=== PATIENT | male | born 1960 | race Two or more races ===

== ENCOUNTER 2017-12-11 14:32 | Observation (INO) | payer OTHER ==
[~2017-12-11] VITALS: Ht 177.8 cm; Wt 79.4 kg
[2017-12-11] MEDS ORDERED: ASPIRIN 325 MG TAB PO ONE (15:30)
[2017-12-11] MEDS ORDERED: ONDANSETRON HCL INJ 2 MG/ML VIAL IV PRN (16:45)
[2017-12-11] MEDS ORDERED: NITROGLYCERIN 2% OINT 1 GM PKT TOP ONE (17:00)
[2017-12-11] MEDS ORDERED: ENOXAPARIN INJ 80 MG/0.8 ML SYR SC ONE ×2 (17:30→18:00)
[2017-12-11 17:40] VITALS: BP 157/77
[2017-12-11] MEDS: NITROGLYCERIN 2% OINT 1 GM PKT TOP SCH (18:00)
[2017-12-11 19:10] VITALS: BP 119/73
[2017-12-11 19:33] VITALS: BP 157/77
[2017-12-11 20:00] VITALS: BP 119/73
[2017-12-11 23:29] LABS: CREATINE KINASE 77 IU/L (30-200)
[2017-12-12] VITALS (8 sets, daily range): BP systolic 103–128; BP diastolic 63–72
[2017-12-12] MEDS: NITROGLYCERIN 2% OINT 1 GM PKT TOP SCH ×4 (05:12→16:52)
[2017-12-12 05:55] LABS: BASOPHILS % 0.6 % (0.0-1.0); EOSINOPHILS # (AUTO) 0.3 (0.0-0.4); EOSINOPHILS % 5.1 % (0.0-6.0); HEMATOCRIT 42.4 % (38.2-49.6); HEMOGLOBIN 14.1 g/dL (14.0-18.0); LYMPHOCYTES # (AUTO) 2.2 (1.0-3.2); LYMPHOCYTES % 33.3 % (18.0-39.1); MEAN CORPUSCULAR HEMOGLOBIN 29.6 pg (28-32); MEAN CORPUSCULAR HGB CONC 33.3 g/dL (31-35); MEAN CORPUSCULAR VOLUME 89.1 fL (81-99); MONOCYTES # (AUTO) 0.6 (0.2-0.8); MONOCYTES % 8.8 % (4.4-11.3); NEUTROPHILS # (AUTO) 3.4 (2.1-6.9); NEUTROPHILS % 51.9 % (38.7-80.0); PLATELET COUNT 197 x10e3/uL (140-360); RED BLOOD COUNT 4.76 x10e6/uL (4.3-5.7); RED CELL DISTRIBUTION WIDTH 13.6 % (11.7-14.4)
[2017-12-12 06:20] LABS: ALANINE AMINOTRANSFERASE 14 IU/L (0-55); ALBUMIN 3.6 g/dL (3.5-5.0); ALBUMIN/GLOBULIN RATIO 1.3 (0.8-2.0); ALKALINE PHOSPHATASE 32 IU/L (40-150); ANION GAP 10.9 mmol/L (8-16); BLOOD UREA NITROGEN 13 mg/dL (7-26); BUN/CREATININE RATIO 16 (6-25); CALCIUM 9.1 mg/dL (8.4-10.2); CARBON DIOXIDE 26 mmol/L (22-29); CHLORIDE 105 mmol/L (98-107); CHOL/HDL RATIO 5.2 (3.9-4.7); CHOLESTEROL 254 MD/DL (0-199); EST GLOMERULAR FILTRATION RATE > 60 ML/MIN (60-); GLUCOSE 87 mg/dL (74-118); HDL CHOLESTEROL 49 MG/DL (40-60); LDL CHOLESTEROL 185 MG/DL (60-130); POTASSIUM 3.9 mmol/L (3.5-5.1); SODIUM 138 mmol/L (136-145); TRIGLYCERIDES 100 MG/DL (0-149)
[2017-12-12 06:53] LABS: CREATINE KINASE 74 IU/L (30-200)
[2017-12-12] MEDS: ASPIRIN 325 MG TAB EC PO SCH (10:35)
--- NOTE | 2017-12-12 12:31 | Consultation ---
DATE OF CONSULTATION: December 12, 2017 CARDIOLOGY CONSULTATION REASON FOR CONSULTATION: Chest pain. CHIEF COMPLAINT: "Pressure in my chest." HISTORY OF PRESENT ILLNESS: Patient is a 57-year-old [place] male with a 15 pack-year smoking history and hyperlipidemia, who was working on a ship for the past six months. For the past 3 days, he has had several episodes of pressure and tightness in his chest, 5/10 to 6/10 in severity, lasting several minutes at a time, associated with diaphoresis but without any radiation. No associated or mitigating factors. Denies ever having chest pain before this. Never had heart problems before this. 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 REVIEW OF SYSTEMS: A 10-point review of systems was performed and was negative other than what is stated in the HPI. PAST MEDICAL HISTORY: None. FAMILY HISTORY: No family history of early CAD. SOCIAL HISTORY: Patient is a smoker. Smokes 10 cigarettes a day for the last 15 years. Denies any drinking or illegal drug use as this is prohibited on the ship. PHYSICAL EXAMINATION VITALS: Temperature 96.9, respiratory rate 18. Blood pressure 113/72. Satting 98% on room air. EYES: Conjunctivae are clear. EARS, NOSE, MOUTH AND THROAT: Normal mucosa. No pallor or bleeding. NECK: No jugular venous distention. MUSCULOSKELETAL: Normal muscle tone and strength. No atrophy or abnormal movements. EXTREMITIES: No clubbing or cyanosis. SKIN: No venous stasis changes or ulcers. GENERAL: Well-developed, well-nourished male. CARDIOVASCULAR: PMI nondisplaced. Regular S1 and S2. No murmur, rubs or gallop. Normal carotid pulses. Palpable femoral pulses. Palpable pedal pulses. No peripheral edema or varicosities. RESPIRATORY: No respiratory distress. Clear to auscultation bilaterally. ABDOMEN: Soft, nontender, no masses. No hepatosplenomegaly. NEURO AND PSYCH: Alert and oriented to person, place and time. Normal affect. MEDICATIONS: Aspirin 325 mg daily. LAB DATA: Reviewed. Notable for LDL of 185. Negative cardiac enzymes. TELEMETRY: Telemetry data reviewed. Shows normal sinus rhythm without any significant arrhythmias. EKG: EKG reviewed and shows right bundle-branch block without any ST-T changes suggestive of ischemia. ASSESSMENT AND PLAN 1. Chest pain. 2. Hyperlipidemia. PLAN: Patient has ruled out for acute MS. Given his history of smoking and elevated LDL, will plan for stress test tomorrow to check for any coronary artery disease. Will add atorvastatin 80 mg daily to his medical regimen. Thank you for this consult. Will continue to follow. Job#: [id number]
[2017-12-12] MEDS: ENOXAPARIN SOD INJ 40 MG/0.4 ML SYR SC SCH (17:01)
--- NOTE | 2017-12-12 17:27 | History and Physical ---
CHIEF COMPLAINT: Chest pain. 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 The patient does have a history of hypertension. The chest pain is described as substernal without any radiation. He denies any shortness of breath, dizziness, blurred vision or any other symptoms. EKG was done, which was found to be abnormal. The patient was sent to an urgent care facility and then transitioned here for further care. He denies chest pain or workup in the past. Denies any heart attack or any stroke in the past. Currently, he is symptom-free. His blood pressure was elevated when he was first admitted, but now it is controlled. PAST MEDICAL HISTORY: Hypertension, cigarette use. PAST SURGICAL HISTORY: Unknown. ALLERGIES: PER ELECTRONIC MEDICAL RECORD. FAMILY HISTORY/SOCIAL HISTORY: The patient is . He smokes 1/2 pack of cigarettes per day. 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 MEDICATIONS: Per electronic medical record. REVIEW OF SYSTEMS: Denies any dizziness, fever, chills, sweats, nausea, vomiting, diarrhea, leg pain, back pain, headache, blurred vision. PHYSICAL EXAMINATION VITAL SIGNS: Have been reviewed. GENERAL: A tired-appearing man resting in bed. HEENT: Anicteric. CARDIOVASCULAR: Normal S1 and S2. LUNGS: Moderate breath sounds. ABDOMEN: Soft, nontender, nondistended. EXTREMITIES: No edema or calf tenderness. MUSCULOSKELETAL: No chest wall tenderness. SKIN: Dry. PSYCHIATRIC: Flat affect. NEUROLOGIC: Alert, oriented times 3. He is moving all extremities. LABS: Reviewed. MEDICATIONS: Reviewed. ASSESSMENT: This is a 57-year-old man. 1. Substernal chest pain. 2. Hypertension. 3. Hyperlipidemia. 4. Overweight state. Body mass index is 25.1. 5. Cigarette use. 6. Abnormal electrocardiogram. PLAN 1. Cardiac enzymes negative. 2. His LDL and triglycerides are 185 and 100 respectively. 3. Will screen for diabetes with hemoglobin A1c. 4. Stress test pending tomorrow. 5. Follow up echocardiogram. 6. If stress test and echocardiogram are normal, we will plan to discharge the patient tomorrow. Job#: [id number]
[2017-12-12] MEDS ORDERED: ATORVASTATIN 40 MG TAB PO SCH (21:00)
[2017-12-13 00:55] VITALS: BP 123/69
[2017-12-13] MEDS: NITROGLYCERIN 2% OINT 1 GM PKT TOP SCH ×3 (05:45→12:00)
[2017-12-13 05:54] VITALS: BP 112/65
[2017-12-13 07:15] VITALS: BP 118/68
[2017-12-13 07:23] VITALS: BP 118/68
[2017-12-13] MEDS: ASPIRIN 325 MG TAB EC PO SCH (08:03)
[2017-12-13] MEDS ORDERED: HYDROCHLOROTHIAZIDE 25 MG TAB PO SCH (09:00)
[2017-12-13 12:51] VITALS: BP 118/69
[2017-12-13] MEDS ORDERED: Atorvastatin PO (13:08)
[2017-12-13] MEDS ORDERED: ASPIRIN ENTERI325 MG PO (13:08)
[2017-12-13] MEDS ORDERED: ESIDRIX25 MG PO (13:08)
--- NOTE | 2017-12-13 15:35 | Cardiology Report ---
DATE OF STUDY: December 13, 2017 NUCLEAR STRESS TEST PROCEDURE PERFORMED: Rest/stress single isotope SPECT imaging with exercise stress and gated SPECT imaging. INDICATIONS: Chest pain. PROCEDURE: The patient performed treadmill exercise using a Tenzin protocol, exercising for 11 minutes 31 seconds to stage 4, and completed an estimated workload of 12.8 metabolic equivalents (METs). The test was terminated due to fatigue. The heart rate was 68 beats per minute at rest and increased to 145 beats per minute at peak exercise, which was 90% of the maximum predicted heart rate. The rest blood pressure was 129/80 mmHg and increased to 188/84 mmHg, which is a normal response. The patient did not develop any symptoms other than fatigue during the procedure. The resting electrocardiogram demonstrated normal sinus rhythm with right bundle branch block. There were no ST segment changes consistent with myocardial ischemia. Next, myocardial perfusion imaging was performed at rest following the injection of 11 mCi of tetrofosmin. At peak exercise, the patient was injected with 33 millicuries of tetrofosmin, and exercise was continued for 1 minute. Gated poststress tomographic imaging was performed. FINDINGS: The overall quality of the study is fair. The left ventricular cavity is noted to be normal size on the rest and stress studies. SPECT images demonstrate homogeneous tracer distribution throughout the myocardium. Gated SPECT imaging reveals normal myocardial thickening and wall motion. The left ventricular ejection fraction was calculated to be 57%. IMPRESSION: Myocardial perfusion imaging is normal. Overall left ventricular systolic function was normal without regional wall motion abnormalities. Job#: [id number]
[2017-12-13 15:42] VITALS: BP 129/71
[2017-12-13] MEDS: ENOXAPARIN SOD INJ 40 MG/0.4 ML SYR SC SCH (17:43)
--- NOTE | 2017-12-13 21:19 | Progress Note ---
DATE: December 13, 2017 CARDIOLOGY PROGRESS NOTE SUBJECTIVE: No major events overnight. Patient underwent treadmill nuclear stress test today. OBJECTIVE: VITAL SIGNS: Temperature 97.2, heart rate 60, respiratory rate 20, blood pressure 129/71, satting 98% on room air. GENERAL: Well-developed, white male. CARDIOVASCULAR: PMI nondisplaced. Regular S1 and S2. No murmurs, rubs or gallops. Palpable carotid pulses. Palpable femoral pulses. Palpable pedal pulses. Palpable radial pulses. RESPIRATORY: Lungs are clear to auscultation bilaterally. No respiratory distress. ABDOMEN: Soft, nontender, nondistended. NEURO AND PSYCH: Alert and oriented times 3. Normal affect. LABS: Laboratory data reviewed. IMAGING: All imaging data reviewed. Nuclear stress test shows normal EKG tracing during exercise. Patient was able to exercise on Tenzin protocol for more than 11 minutes without any significant changes. His perfusion was also completely normal on the nuclear study. ASSESSMENT: 1. Chest pain. 2. Hyperlipidemia. PLAN: Patient ruled out for [place]. His nuclear stress test is negative. Given these findings, patient is okay to be discharged and [place]. Recommend adding atorvastatin 80 mg daily to his medical regimen for primary prevention. Thank you for this consult. Job#: [id number]
--- NOTE | 2017-12-14 07:41 | Discharge Summary ---
PRINCIPAL DIAGNOSES 1. Atypical chest pain. 2. Hypertension. 3. Hyperlipidemia. 4. Overweight state. Body mass index 25.1. 5. Cigarette use. 6. Abnormal electrocardiogram. SECONDARY DIAGNOSIS: Cigarette use. CHIEF COMPLAINT: Chest pain. HISTORY OF PRESENT ILLNESS: A 57-year-old man with chest pain. Refer to the H and P for further details. HOSPITAL COURSE: Patient was found to have atypical chest pain. His stress test report has been negative. He had an echocardiogram. He had hypertension and hyperlipidemia treated with medication region. Overweight state with BMI of 25.1. Hemoglobin A1c screening revealed a level of 5.2 and negative. His LDL was 185, triglycerides 100. Discharged with aspirin, statin medication and hydrochlorothiazide. The patient is doing better and currently appropriate for discharge and follow up. DISCHARGE MEDICATIONS: Per electronic medical record. FOLLOWUP: Primary care doctor in 1 week. Cardiology in 1-2 weeks. SANDRO HUI MD Job#: [id number]
== END 2017-12-13 18:56 | disposition home or self-care (01) ==
LOC: ER 14:32 → ERHOLD 16:51 → IMCU 17:31
PROVIDERS: ADMIT Internal Medicine; ATTEND Internal Medicine
DX: R07.89 Other chest pain (principal); I10 Essential (primary) hypertension; E78.5 Hyperlipidemia, unspecified; E66.3 Overweight; Z68.25 Body mass index [BMI] 25.0-25.9, adult; Z72.0 Tobacco use; R94.31 Abnormal electrocardiogram [ECG] [EKG]
CPT/HCPCS: 36415; 71046; 78452; 80053; 80061; 82550; 82553; 83036; 84443; 84484; 85025; 93005; 93017; 99284; A9502; G0378; J1650; J2405